=== PATIENT | male | born 1955 | race Caucasian/White ===

== ENCOUNTER → 2016-10-07 | Outpatient (CLI) | payer BC ==
[2016-10-07 14:02] VITALS: BP 140/92
== END ==
LOC: MHUC 13:03
PROVIDERS: ATTEND Physician Assistant
DX: J01.10 Acute frontal sinusitis, unspecified (principal); J30.1 Allergic rhinitis due to pollen; J45.909 Unspecified asthma, uncomplicated
CPT/HCPCS: 99213